=== PATIENT | female | born 1965 | race Caucasian/White ===

== ENCOUNTER → 2020-01-08 08:33 | Outpatient (BNVA) | payer MEDICARE, MEDICAID, SELFPAY | PROVIDERS: PCP Family Medicine; Referring Provider Family Medicine; Visit Provider Anesthesiology | DX: G89.4 Chronic pain syndrome (principal); M06.9 Rheumatoid arthritis, unspecified; M75.111 Incomplete rotator cuff tear or rupture of right shoulder, not specified as traumatic; M75.112 Incomplete rotator cuff tear or rupture of left shoulder, not specified as traumatic; L12.0 Bullous pemphigoid | CPT/HCPCS: 99214 ==

== ENCOUNTER → 2020-03-19 14:29 | Outpatient (BNVA) | payer MEDICARE, MEDICAID, SELFPAY | PROVIDERS: PCP Family Medicine; Referring Provider Family Medicine; Visit Provider Family Medicine Adult Medicine | DX: M06.9 Rheumatoid arthritis, unspecified (principal) | CPT/HCPCS: 99202 ==